=== PATIENT | female | born 1940 | race Caucasian/White ===

== ENCOUNTER 2017-05-17 15:51 | Emergency (ER) | payer MEDICARE, OTHER ==
[~2017-05-17 15:51] MED LIST: ACET500C PO; ALBUAER3 INH; APIDINJ SQ; ASPI81TA19 PO; ATOR10TA15 PO; BLAC540C2 PO; CALC1TAB30 PO; CARV12.52 PO; CHLO4TAB2 PO; DULC100C PO; FLUT50SP EACH NARE; GABA300C5 PO; GLUC15009 PO; LANTINJ SQ; LEVO-86 PO; LISI2.5T3 PO; OXYC-103 PO; OXYC-432 PO; PRED-503 PO; PREM0.452 PO; TIMO0.2517 EACH EYE; TRAM50TA PO; TRAV0.00 EACH EYE; TRAZ50TA12 PO
[2017-05-17] MEDS ORDERED: DEXTROSE 50% IN WATER 50 ML VIAL(D50) ONE (15:55)
[2017-05-17 16:06] VITALS: BP 151/83; PULSE 69; RESP 18; TEMP 97.4; O2SAT 99
--- NOTE | 2017-05-17 16:12 | PD ---
HPI Chief Complaint: Altered Mental Status Time Seen by Provider: 16:05 Travel History International Travel<30 days: No Contact w/Intl Traveler<30days: No Traveled to known affect area: No History of Present Illness HPI The patient is a 77-year-old female who presents emergency department for altered mental status. The patient apparently was noted to have altered mental status, diaphoresis, and confusion prior to arrival. The patient is a known diabetic, uses insulin on a daily basis. The patient and her cannot recall the names of the medications, however, she states she takes a long -acting insulin in the morning 26 units and a short acting insulin during the day. She states she takes 4 units in the morning of breakfast, and 12 units at lunch and dinner. The patient states she did eat lunch earlier today around noon, had breakfast food at lunch. States her blood sugar at that time was 59 and she administered the insulin. She denies taking any oral medicines for diabetes, however, cannot recall the names of all her medications. The patient denies any chest pain, shortness breath, nausea, vomiting, or abdominal pain. However, upon arrival the patient was a somewhat limited historian his Accu- Chek at bedside was 51. PFSH Past Medical History Arthritis: Yes Blood Disorders: No Cancer: No Cardiac Catheterization: Yes Cardiovascular Problems: Yes Chest Pain: No Diabetes: Yes Diminished Hearing: No Endocrine: Yes Gastrointestinal Disorders: No Glaucoma: No Genitourinary: No Hepatitis: No Hiatal Hernia: No (REPAIRED CHILD) Hypertension: Yes Immune Disorder: No Musculoskeletal: Yes (SCOLIOSIS) Neurologic: No Psychiatric: No Reproductive: No Respiratory: No Integumentary: No Seizures: Yes Thyroid Disease: Yes ?: Not Menopausal: Yes Past Surgical History Abdominal Surgery: Yes (HERNIA REPAIR 1950) Cholecystectomy: Yes (1984) Coronary Stent: Yes Joint Replacement: Yes (RIGHT KNEE 2008) Neurologic Surgery: Yes (LAMINECTOMY MICRODISCECTOMY 2003) Thoracic Surgery: No Other Surgery: Yes (HERNIA,GALLBLADDER,RIGHT KNEE,LAMINECTOMY,LEFT KNEE) Social History Alcohol Use: No Tobacco Use: No Substance Use: No Allergies-Medications (Allergen,Severity, Reaction): Coded Allergies: levofloxacin (Unverified Allergy, Severe, Hallucinations, 05/17/17) prasugrel (Unverified Allergy, Severe, Rash, 05/17/17) propoxyphene (Unverified Allergy, Mild, NAUSEA, 05/17/17) amitriptyline (Unverified Adverse Reaction, Intermediate, LEG PAIN, ) Reported Meds & Prescriptions Reported Meds & Active Scripts Active Reported Kenalog-10 Inj (Triamcinolone Acetonide) 50 Mg/5 Ml Inj 10 Mg ONCE Marcaine 0.75% Vial (Bupivacaine HCl/Pf) 7.5 Mg/Ml Vial MONTHLY Ranitidine (Ranitidine HCl) 300 Mg Tab 600 Mg PO DAILY Colace (Docusate Sodium) 100 Mg Capsule Allergy Relief (Chlorpheniramine Maleate) 4 Mg Tab 4 Mg PO Q4H PRN Mapap (Acetaminophen) 500 Mg Tab 500 Mg PO Q4-6H PRN Carvedilol 12.5 Mg Tab 12.5 Mg PO BID Calcium 600 with Vitamin D (Calcium Carbonate-Cholecalciferol) 600-400 mg-Unit Tab 1 Tab PO DAILY Humalog Inj (Insulin Human Lispro) 1,000 Unit/10 Ml Vial 2-12 Units SQ ACHS Max dose at bedtime:( )units; sugars < 70,(0)units; sugars 150-199,(2)units; sugars 200-249,(4)units; sugars 250-299,(7)units; sugars 300-349,(10)units; sugars more than 349,(12)units. Tresiba Flextouch Pen Inj (Insulin Degludec Inj) 300 unit/3 ML Pen 1 Units SQ TID Timolol Maleate (Timolol Maleate (Ophth)) 0.25 % Salima 1 Drop EACH EYE DAILY Dulcolax Stool Softener (Docusate Sodium) 100 Mg Cap 100 Mg PO EVERY OTHER DAY Oxycodone-Acetaminophen 5-325 mg Tab 1 Tab PO Q6H PRN Oxycontin (Oxycodone HCl) 10 Mg Tab 10 Mg PO Q12HR Trazodone (Trazodone HCl) 50 Mg Tab 50 Mg PO HS Tramadol (Tramadol HCl) 50 Mg Tab 1-2 Tab PO Q6H PRN Fluticasone Nasal [place] 50 Mcg/Act Naspr 100 Mcg EACH NARE DAILY PRN 50 mcg/spray Proair Hfa 8.5 GM Inh (Albuterol Sulfate) 90 Mcg/Act Aer 1 Puff INH DAILY PRN 108 mcg/actuation Apidra Inj (Insulin Glulisine Inj) 1,000 Unit/10 Ml Vial 6 Units SQ B4/LUNCH, DINNER Aspir-Low (Aspirin) 81 Mg Tabdr 2 Tab PO DAILY Atorvastatin (Atorvastatin Calcium) 10 Mg Tab 10 Mg PO HS Gabapentin 300 Mg Cap 300 Mg PO TID Glucosamine 1,500 Mg Tab 1,500 Mg PO DAILY Lantus Solostar Pen Inj (Insulin Glargine) 300 Unit/3 Ml Pen 27 Units SQ DAILYAC Lisinopril 2.5 Mg Tab 2.5 Mg PO DAILY Deltasone (Prednisone) 20 Mg Tab 10 Mg PO DAILY Prempro Blister Pack (Estrogens Conj/Medroxyprogest Acet) 0.45-1.5 Mg Tab 1 Tab PO EVERY OTHER DAY Synthroid (Levothyroxine Sodium) 137 Mcg Tab 137 Mcg PO DAILY Travatan Z Opth Drops (Travoprost) 0.004 % Soln 1 Drop EACH EYE HS Review of Systems ROS Limitations: Altered Mental Status Except as stated in HPI: all other systems reviewed are Neg General / Constitutional: No: Fever HENT: No: Lightheadedness Cardiovascular: Positive: Diaphoresis, No: Chest Pain or Discomfort Respiratory: No: Shortness of Breath Gastrointestinal: No: Nausea, Vomiting Musculoskeletal: Positive: Weakness Neurologic: Positive: Change in Mentation Physical Exam Narrative GENERAL: Awake, slightly confused 77 year-old female appears her stated age and is slightly diaphoretic. SKIN: Focused skin assessment: Diaphoretic. HEAD: Atraumatic. Normocephalic. EYES: Pupils equal and round. 3 mm bilateral and reactive. ENT: No nasal bleeding or discharge. Mucous membranes pink and moist. NECK: Trachea midline. No JVD. CARDIOVASCULAR: Regular rate and rhythm. No murmur appreciated. RESPIRATORY: No accessory muscle use. Clear to auscultation. Breath sounds equal bilaterally. GASTROINTESTINAL: Abdomen soft, non-tender, nondistended. No rebound tenderness. MUSCULOSKELETAL: No obvious deformities. No clubbing. No cyanosis. No edema. NEUROLOGICAL: Awake, slightly confused 77 year-old female appears her stated age. She is able follow simple commands. She is oriented to person, place, month, and year. Difficulty telling me the names of her medications. PSYCHIATRIC: Slightly confused. Data Data Last Documented VS Vital Signs Date Time Temp Pulse Resp B/P (MAP) Pulse Ox O2 Delivery O2 Flow Rate FiO2 05/17/17 16:06 97.4 69 18 151/83 (105) 99 Orders Orders Dextrose 50% In Miko (Vial) Inj (D50w (Vi (05/17/17 15:55) Electrocardiogram (05/17/17 16:05) Complete Blood Count With Diff (05/17/17 16:05) Comprehensive Metabolic Panel (05/17/17 16:05) Beta Hydroxybutyrate (Acetone) (05/17/17 16:05) Urinalysis - C+S If Indicated (05/17/17 16:05) Blood Glucose (05/17/17 16:05) Blood Glucose (05/17/17 17:05) Ecg Monitoring (05/17/17 16:05) Iv Access Insert/Monitor (05/17/17 16:05) Oximetry (05/17/17 16:05) NPO (05/17/17 16:05) Sodium Chloride 0.9% Flush (Ns Flush) (05/17/17 16:15) Labs Laboratory Tests Test 05/17/17 16:00 05/17/17 17:00 White Blood Count 9.6 TH/MM3 Red Blood Count 4.32 MIL/MM3 Hemoglobin 13.6 GM/DL Hematocrit 40.6 % Mean Corpuscular Volume 93.9 FL Mean Corpuscular Hemoglobin 31.5 PG Mean Corpuscular Hemoglobin Concent 33.5 % Red Cell Distribution Width 12.7 % Platelet Count 302 TH/MM3 Mean Platelet Volume 7.8 FL Neutrophils (%) (Auto) 78.8 % Lymphocytes (%) (Auto) 11.9 % Monocytes (%) (Auto) 6.5 % Eosinophils (%) (Auto) 1.3 % Basophils (%) (Auto) 1.5 % Neutrophils # (Auto) 7.7 TH/MM3 Lymphocytes # (Auto) 1.1 TH/MM3 Monocytes # (Auto) 0.6 TH/MM3 Eosinophils # (Auto) 0.1 TH/MM3 Basophils # (Auto) 0.1 TH/MM3 CBC Comment DIFF FINAL Differential Comment Blood Urea Nitrogen 33 MG/DL Creatinine 1.50 MG/DL Random Glucose 38 MG/DL Total Protein 7.5 GM/DL Albumin 3.6 GM/DL Calcium Level 9.5 MG/DL Alkaline Phosphatase 65 U/L Aspartate Amino Transf (AST/SGOT) 43 U/L Alanine Aminotransferase (ALT/SGPT) 37 U/L Total Bilirubin 0.4 MG/DL Sodium Level 139 MEQ/L Potassium Level 4.2 MEQ/L Chloride Level 104 MEQ/L Carbon Dioxide Level 28.6 MEQ/L Anion Gap 6 MEQ/L Estimat Glomerular Filtration Rate 34 ML/MIN B-Hydroxybutyrate 0.12 MMOL/L Urine Collection Type CLEAN CATCH Urine Color YELLOW Urine Turbidity CLEAR Urine pH 5.5 Urine Specific Christine 1.027 Urine Protein NEG mg/dL Urine Glucose (UA) 250 mg/dL Urine Ketones TRACE mg/dL Urine Occult Blood NEG Urine Nitrite NEG Urine Bilirubin NEG Urine Leukocyte Esterase SMALL Urine RBC 0-3 /hpf Urine WBC 6-8 /hpf Urine Squamous Epithelial Cells 6-8 /hpf Urine Amorphous Sediment FEW Microscopic Urinalysis Comment CULT NOT INDICATED MDM Medical Decision Making Medical Screen Exam Complete: Yes Emergency Medical Condition: Yes Medical Record Reviewed: Yes Interpretation(s) EKG reveals normal sinus rhythm with a rate of 66. Left bundle branch block. Laboratory Tests Test 05/17/17 16:00 05/17/17 17:00 White Blood Count 9.6 TH/MM3 Red Blood Count 4.32 MIL/MM3 Hemoglobin 13.6 GM/DL Hematocrit 40.6 % Mean Corpuscular Volume 93.9 FL Mean Corpuscular Hemoglobin 31.5 PG Mean Corpuscular Hemoglobin Concent 33.5 % Red Cell Distribution Width 12.7 % Platelet Count 302 TH/MM3 Mean Platelet Volume 7.8 FL Neutrophils (%) (Auto) 78.8 % Lymphocytes (%) (Auto) 11.9 % Monocytes (%) (Auto) 6.5 % Eosinophils (%) (Auto) 1.3 % Basophils (%) (Auto) 1.5 % Neutrophils # (Auto) 7.7 TH/MM3 Lymphocytes # (Auto) 1.1 TH/MM3 Monocytes # (Auto) 0.6 TH/MM3 Eosinophils # (Auto) 0.1 TH/MM3 Basophils # (Auto) 0.1 TH/MM3 CBC Comment DIFF FINAL Differential Comment Blood Urea Nitrogen 33 MG/DL Creatinine 1.50 MG/DL Random Glucose 38 MG/DL Total Protein 7.5 GM/DL Albumin 3.6 GM/DL Calcium Level 9.5 MG/DL Alkaline Phosphatase 65 U/L Aspartate Amino Transf (AST/SGOT) 43 U/L Alanine Aminotransferase (ALT/SGPT) 37 U/L Total Bilirubin 0.4 MG/DL Sodium Level 139 MEQ/L Potassium Level 4.2 MEQ/L Chloride Level 104 MEQ/L Carbon Dioxide Level 28.6 MEQ/L Anion Gap 6 MEQ/L Estimat Glomerular Filtration Rate 34 ML/MIN B-Hydroxybutyrate 0.12 MMOL/L Urine Collection Type CLEAN CATCH Urine Color YELLOW Urine Turbidity CLEAR Urine pH 5.5 Urine Specific Christine 1.027 Urine Protein NEG mg/dL Urine Glucose (UA) 250 mg/dL Urine Ketones TRACE mg/dL Urine Occult Blood NEG Urine Nitrite NEG Urine Bilirubin NEG Urine Leukocyte Esterase SMALL Urine RBC 0-3 /hpf Urine WBC 6-8 /hpf Urine Squamous Epithelial Cells 6-8 /hpf Urine Amorphous Sediment FEW Microscopic Urinalysis Comment CULT NOT INDICATED Differential Diagnosis Differential diagnosis includes hypoglycemia, CVA, TIA, UTI, hyponatremia, medication side effect. Narrative Course IV was established, labs are drawn and sent, and the patient was placed on cardiac telemetry monitoring and continuous pulse oximetry monitoring. EKG was ordered and interpreted. The patient was immediately administered 1 amp of D50. I had a discussion with the patient's bedside, he did not know the names of the medications that she left wall of alcohol. Therefore, the was traveling home to obtain the wallet for medications. I reviewed the EMR, does appear she is on insulin, I did not see any sulfonylureas on her medication list. The patient was given a tray a bedside EEG and her blood sugars were checked every hour 2. The patient's creatinine was noted to be 1.5 , initial CMP revealed a glucose of 38. The patient was reevaluated at 5 PM ( 159), after she was administered an amp of D50 and ate a meal, she was now awake and alert 5 and able to follow commands without difficulty. Her symptoms had resolved. The patient continued to be monitored in the emergency department and repeat Accu-Chek at 6 PM was ordered. The patient's UA had 6-8 WBCs and squamous epithelial cells, most likely contaminant. Culture was not indicated. The patient's blood glucose at 6 PM was 199. The patient is alert and oriented 5, nonfocal on exam, she is stable for outpatient follow-up. Diagnosis Primary Impression: Hypoglycemia Additional Impression: Altered mental status Qualified Codes: R41.0 - Disorientation, unspecified Patient Instructions: General Instructions Additional Instructions: Please provide a patient a copy of her labs at discharge. Follow-up with her primary physician. Monitor blood sugars closely. Return if symptoms worsen or progress. Disposition: 01 DISCHARGE HOME Condition: Stable Tawanda Og MD May 17, 2017 16:12
[2017-05-17] MEDS ORDERED: SODIUM CHLORIDE 0.9% FLUSH 10 ML FLUSH IVF PRN (16:15)
[2017-05-17] MEDS ORDERED: INSU1INJ14 SQ (16:18)
[2017-05-17] MEDS ORDERED: HUMALOG SQ (16:18)
[2017-05-17 16:27] LABS: AUTOMATED NEUTROPHIL # 7.7 TH/MM3 (1.8-7.7); BASOPHIL # 0.1 TH/MM3 (0-0.2); BASOPHIL % 1.5 % (0.0-2.0); EOSINOPHIL # 0.1 TH/MM3 (0-0.4); EOSINOPHIL % 1.3 % (0.0-4.0); HEMATOCRIT 40.6 % (35.0-46.0); HEMO FLAGS DIFF FINAL; LYMPH % 11.9 % (9.0-44.0); LYMPHOCYTE # 1.1 TH/MM3 (1.0-4.8); MEAN CELL VOLUME 93.9 FL (80.0-100.0); MEAN CORPUSCULAR HEMOGLOBIN 31.5 PG (27.0-34.0); MEAN CORPUSCULAR HGB CONC 33.5 % (32.0-36.0); MONO % 6.5 % (0.0-8.0); NEUT % 78.8 % (16.0-70.0); PLATELET COUNT 302 TH/MM3 (150-450); RED BLOOD COUNT 4.32 MIL/MM3 (4.00-5.30); RED CELL DISTRIBUTION WIDTH 12.7 % (11.6-17.2); WHITE BLOOD COUNT 9.6 TH/MM3 (4.0-11.0)
[2017-05-17] MEDS ORDERED: ALLE4TAB28 PO (16:42)
[2017-05-17] MEDS ORDERED: MAPA500T PO (16:42)
[2017-05-17] MEDS ORDERED: CALC1TAB87 PO (16:42)
[2017-05-17] MEDS ORDERED: CARV12.52 PO (16:42)
[2017-05-17] MEDS ORDERED: COLA100C5 (16:42)
[2017-05-17] MEDS ORDERED: TRIA50P (16:42)
[2017-05-17] MEDS ORDERED: RANI300T PO (16:42)
[2017-05-17] MEDS ORDERED: [UNRECOGNIZED DRUG - CODE] (16:42)
[2017-05-17 16:54] LABS: CHLORIDE 104 MEQ/L (98-107); POTASSIUM 4.2 MEQ/L (3.5-5.1); SODIUM (NA) 139 MEQ/L (136-145)
[2017-05-17 16:58] LABS: ANION GAP 6 MEQ/L (5-15); BICARBONATE 28.6 MEQ/L (21.0-32.0)
[2017-05-17 17:05] LABS: ALKALINE PHOSPHATASE 65 U/L (45-117); ALT (GPT) 37 U/L (10-53); AST (GOT) 43 U/L (15-37); BLOOD UREA NITROGEN 33 MG/DL (7-18); GLOMERULAR FILTRATION RATE 34 ML/MIN (>89); TOTAL BILIRUBIN ADULT 0.4 MG/DL (0.2-1.0)
[2017-05-17 17:17] LABS: BETA-HYDROXYBUTYRATE 0.12 MMOL/L (0.00-0.39)
[2017-05-17 17:21] LABS: BLOOD, URINE NEG (NEG); GLUCOSE,URINE 250 mg/dL (NEG); KETONE, URINE TRACE mg/dL (NEG); NITRITE,URINE NEG (NEG); PH, URINE 5.5 (5.0-8.5)
[2017-05-17 17:27] LABS: METHOD OF COLLECTION CLEAN CATCH; URINE COLOR YELLOW (YELLW/STRAW)
[2017-05-17 17:28] LABS: COMMENT (UR) CULT NOT INDICATED; CULTURE IF INDICATED CULT NOT INDICATED; RBC, URINE 0-3 /hpf (0-3)
[2017-05-17 18:01] VITALS: BP 120/57; TEMP 97.9
--- NOTE | 2017-05-18 16:18 | EKG ---
Date Performed: 05/17/2017 Time Performed: 16:37:54 PTAGE: 77 years EKG: Sinus rhythm POSSIBLE LEFT ATRIAL ENLARGEMENT LEFT BUNDLE BRANCH BLOCK Compared to prior tracing no significant c hange ABNORMAL ECG PREVIOUS TRACING : 01/15/2016 08.09 DOCTOR: aLrs Carrero Interpretating Date/Time 05/18/2017 16:16:17
== END 2017-05-17 18:16 | disposition home or self-care (01) ==
LOC: PHED 15:51
DX: E11.649 Type 2 diabetes mellitus with hypoglycemia without coma (principal); Z79.4 Long term (current) use of insulin
CPT/HCPCS: 80053; 81001; 82010; 85025; 93005; 96374

== ENCOUNTER 2018-06-26 15:28 | Inpatient (IN) ==
[2018-06-26] MEDS ORDERED: Vancomycin Inj 1,000 MG in Sodium Chlor 0.9% Inj 250 ML IV.SIG ONE (16:07)
--- NOTE | 2018-06-26 16:15 | ED ---
HPI General Chief complaint: Skin/Abscess/Foreign Body Stated complaint: Cellultis Lft Leg Time Seen by Provider: 06/26/18 15:47 Source: patient Mode of arrival: ambulatory Limitations: no limitations History of Present Illness HPI narrative: Patient is a 78-year-old female who returns to the emergency room for evaluation of worsening cellulitis. Patient reports that she was seen in the emergency room on June 23, 2018, reports that she had an ultrasound of her left lower extremity to rule out DVT and was diagnosed with a cellulitis to her left lower extremity. Patient reports that prior to coming to the emergency room for this, she suffered an abrasion to her anterior aspect of her distal tib-fib. Patient reports that her airbrush painter, Dr. Morley prescribed her a cream to put on this. Patient reports that she began to have pus from this abrasion site and redness to her foot. Patient reports that the cellulitis has progressed past her foot and upper leg to the distal one third aspect of her left tib-fib. Patient reports that she has been taking her antibiotics as prescribed but it has not been helping her. Patient reports concerns that she is a diabetic, her blood sugars have been controlled. Patient denies any fevers or chills, no other complaints. Related Data Home Medications Medication Instructions Recorded Confirmed acetaminophen [Acetaminophen Extra 500 mg PO HS 06/23/18 06/26/18 Strength] albuterol sulfate [ProAir HFA] 1 puff INHALATION Q6H PRN 06/23/18 06/26/18 aspirin 325 mg PO DAILY 06/23/18 06/26/18 atorvastatin 10 mg PO DAILY 06/23/18 06/26/18 azelaic acid [Finacea] 1 applic TOPICAL DAILY 06/23/18 06/26/18 calcium carbonate-vitamin D3 2 tab PO DAILY 06/23/18 06/26/18 [Calcium 600 + D(3)] carvedilol 25 mg PO DAILY 06/23/18 06/26/18 conj estrog-medroxyprogest estrada 1 tab PO EVERY OTHER DAY 06/23/18 06/26/18 [Prempro] docusate sodium [Colace] 100 mg PO DAILY 06/23/18 06/26/18 fentanyl 1 patch TRANSDERMAL Q72H 06/23/18 06/26/18 gabapentin 300 mg PO QID 06/23/18 06/26/18 glucosamine sulfate 1,000 mg PO DAILY 06/23/18 06/26/18 hydrocodone-acetaminophen [[place]] 1 tab PO Q6H PRN 06/23/18 06/26/18 insulin NPH and regular human 14 unit SUBCUT BID 06/23/18 06/26/18 [Novolin 70-30 FlexPen U-100] insulin degludec [Tresiba 24 unit SUBCUT DAILY 06/23/18 06/26/18 FlexTouch U-100] latanoprost 1 drp OPHTHALMIC (EYE) QPM 06/23/18 06/26/18 levothyroxine [Synthroid] 137 mcg PO DAILY 06/23/18 06/26/18 lisinopril 2.5 mg PO DAILY 06/23/18 06/26/18 oxycodone [OxyContin] 20 mg PO DAILY 06/23/18 06/26/18 prednisone 10 mg PO DAILY 06/23/18 06/26/18 ranitidine HCl 300 mg PO BID 06/23/18 06/26/18 tramadol 50 mg PO Q6H PRN 06/23/18 06/26/18 travoprost [Travatan Z] 1 drp OPHTHALMIC (EYE) QPM 06/23/18 06/26/18 trazodone 25 mg PO HS 06/23/18 06/26/18 Previous Rx's Medication Instructions Recorded ciprofloxacin HCl [Cipro] 500 mg PO BID 7 Days #14 tab 06/23/18 sulfamethoxazole-trimethoprim 1 tab PO BID 7 Days #14 tab 06/23/18 [Bactrim DS] Allergies Allergy/AdvReac Type Severity Reaction Status Date / Time levofloxacin Allergy Severe Hallucinati Verified 06/26/18 15:36 ons prasugrel Allergy Severe Rash Verified 06/26/18 15:36 propoxyphene Allergy Mild NAUSEA Verified 06/26/18 15:36 amitriptyline AdvReac Intermediate LEG PAIN Verified 06/26/18 15:36 Review of Systems ROS: all other systems reviewed are negative [facility] Medical History Medical History Diabetes 1.5, managed as type 2 (Acute) Hernia (Acute) Surgical History Surgical History H/O heart artery stent (Acute) H/O laminectomy (Acute) History of total right knee replacement (Acute) Hx of arthroscopy of left knee (Acute) Hx of cholecystectomy (Acute) Hx of microdiscectomy (Acute) Social History Social History Substance History: No History of Abuse Second Hand Smoke Exposure: No Smoking Status: Former smoker Tobacco Type: Cigarettes How Often Do You Have a Drink Containing Alcohol: Never Recent Travel in [facility] within the Last 8 Weeks: No Recent Out of Country Travel within the Last 8 Weeks: No Immunization History Tetanus Immunization: <5 Years Exam Narrative Exam Narrative: GENERAL: NAD SKIN: Focused skin assessment warm/dry. HEAD: Atraumatic. Normocephalic. EYES: Pupils equal and round. No scleral icterus. No injection or drainage. ENT: No nasal bleeding or discharge. Mucous membranes pink and moist. NECK: Trachea midline. No JVD. CARDIOVASCULAR: Regular rate and rhythm. No murmur appreciated. RESPIRATORY: No accessory muscle use. Clear to auscultation. Breath sounds equal bilaterally. GASTROINTESTINAL: Abdomen soft, non-tender, nondistended. Hepatic and splenic margins not palpable. MUSCULOSKELETAL: No obvious deformities. No clubbing. No cyanosis. Patient with +3 pitting edema to right lower extremity (from foot to ankle), she has an abrasion or ulceration to the distal left anterior tib-fib with no active drainage noted. Patient does have a palpable dorsalis pedal pulse. NEUROLOGICAL: Awake and alert. No obvious cranial nerve deficits. Motor grossly within normal limits. Normal speech. PSYCHIATRIC: Appropriate mood and affect; insight and judgment normal. Course Initial Documented Vital Signs Temperature 98.0 F 06/26/18 15:31 Pulse Rate 79 06/26/18 15:31 Respiratory Rate 18 06/26/18 15:31 Blood Pressure 121/64 06/26/18 15:31 Pulse Oximetry 96 06/26/18 15:31 Last Documented Vital Signs Temperature 98.0 F 06/26/18 15:31 Pulse Rate 79 06/26/18 15:31 Respiratory Rate 18 06/26/18 15:31 Blood Pressure 121/64 06/26/18 15:31 Pulse Oximetry 96 06/26/18 15:31 Medical Decision Making MDM Narrative Medical decision making narrative: During the course of the patients emergency department visit, the patients history, examination, and differential diagnosis were reviewed with the patient. The patient was placed on a personnel monitor with oximetry and frequent blood pressure monitoring. The patient had an IV access obtained and blood work sent for analysis. The patient was initially provided IV vancomycin Previous records were reviewed. Patient was discharged to home with a prescription for Bactrim and Cipro, she has failed outpatient treatment. Plan for patient to be admitted to the hospital as patients symptoms have progressed and worsened. The patients laboratory studies were reviewed and remarkable for WBC 10.4, hemoglobin 12.6, hematocrit 37.7, platelets 263 Sodium 136, potassium 4.9, chloride 102, BUN 28, creatinine 1.70, glucose 210 Patient did have an US of LLE on 06/23 which was negative for dvt Patient with failed outpatient treatment for left foot cellulitis, she will require admission, call made to the admitting team case reviewed with Dr. Marrufo who accepts pt to service Medical Screen Exam Complete: Yes Emergency Medical Condition: Yes Differential Diagnosis Differential Diagnosis: Cellulitis, venous insufficiency, abscess, osteomyelitis Medical Records Medical records reviewed: Yes I reviewed the patient's medical records. Lab Data Lab results reviewed: Yes I reviewed the patient's lab results. Result diagrams: 06/26/18 16:15 06/26/18 16:15 Lab Results 06/26/18 06/26/18 Range/Units 16:15 16:15 CBC w Diff Auto diff final WBC 10.4 (4.0-11.0) th/mm3 RBC 4.13 (4.00-5.30) mil/mm3 Hgb 12.6 (11.6-15.3) gm/dL Hct 37.7 (35.0-46.0) % MCV 91.2 (80.0-100.0) fL MCH 30.5 (27.0-34.0) pg MCHC 33.4 (32.0-36.0) % RDW 12.1 (11.6-17.2) % Plt Count 263 (150-450) th/mm3 MPV 7.7 (7.0-11.0) fL Neut % (Auto) 92.4 H (16.0-70.0) % Lymph % (Auto) 6.2 L (9.0-44.0) % [place] % (Auto) 0.9 (0.0-8.0) % Eos % (Auto) 0.2 (0.0-4.0) % Baso % (Auto) 0.3 (0.0-2.0) % Neut # (Auto) 9.7 H (1.8-7.7) th/mm3 Lymph # (Auto) 0.6 L (1.0-4.8) th/mm3 [place] # (Auto) 0.1 (0.0-0.9) th/mm3 Eos # (Auto) 0.0 (0.0-0.4) th/mm3 Baso # (Auto) 0.0 (0.0-0.2) th/mm3 WBC Differential . Differential Comment . Sodium 136 (136-145) meq/L Potassium 4.9 (3.5-5.1) meq/L Chloride 102 (98-107) meq/L Carbon Dioxide 25.8 (21.0-32.0) meq/L Anion Gap 8 (5-15) meq/L BUN 28 H (7-18) mg/dL Creatinine 1.70 H (0.50-1.00) mg/dL Estimated GFR 29 L (>89) mL/min Random Glucose 210 H (74-106) mg/dL Calcium 8.5 (8.5-10.1) mg/dL Imaging Data Attestation: I personally reviewed and interpreted this imaging study as follows : Radiologist's impression: Foot X-Ray 06/26/18 16:07 CONCLUSION: Soft tissue swelling of the left foot. Question hairline fracture proximal phalanx third toe. Discharge Plan Discharge Disposition Patient Disposition: ED Admit(ED Internal Use Only) Discharge Condition Condition: Stable Discharge Order Discharge Orders: ED Use Only Admit Order (Routine); Ordered 06/26/18 Ordered By: Ruba Prater Discharge Details Diagnosis: Cellulitis of left lower leg Physicians Team ED Provider: Ruba Prater Primary Care Provider: Padmini Kam Rxs /Orders / Referrals /Forms Prescriptions: No Action latanoprost 0.005 % Drops 1 drp OPHTHALMIC (EYE) QPM RF: 0 levothyroxine [Synthroid] 137 mcg Tablet 137 mcg PO DAILY RF: 0 prednisone 10 mg Tablet 10 mg PO DAILY RF: 0 carvedilol 12.5 mg Tablet 25 mg PO DAILY RF: 0 trazodone 50 mg Tablet 25 mg PO HS RF: 0 atorvastatin 10 mg Tablet 10 mg PO DAILY RF: 0 aspirin 325 mg Tablet 325 mg PO DAILY RF: 0 travoprost [Travatan Z] 0.004 % Drops 1 drp OPHTHALMIC (EYE) QPM RF: 0 calcium carbonate-vitamin D3 [Calcium 600 + D(3)] 600 mg(1,500mg) -200 unit Tablet 2 tab PO DAILY RF: 0 hydrocodone-acetaminophen [[place]] 10-325 mg Tablet 1 tab PO Q6H PRN (Reason: Pain) RF: 0 tramadol 50 mg Tablet 50 mg PO Q6H PRN (Reason: Pain) RF: 0 acetaminophen [Acetaminophen Extra Strength] 500 mg Tablet 500 mg PO HS RF: 0 ranitidine HCl 300 mg Capsule 300 mg PO BID RF: 0 docusate sodium [Colace] 100 mg Capsule 100 mg PO DAILY RF: 0 gabapentin 300 mg Capsule 300 mg PO QID RF: 0 fentanyl 25 mcg/hr Patch 72 Hour 1 patch TRANSDERMAL Q72H RF: 0 albuterol sulfate [ProAir HFA] 90 mcg/actuation Hfa Aerosol Inhaler 1 puff INHALATION Q6H PRN (Reason: Wheezing) RF: 0 lisinopril 2.5 mg Tablet 2.5 mg PO DAILY RF: 0 glucosamine sulfate 1,000 mg Capsule 1,000 mg PO DAILY RF: 0 azelaic acid [Finacea] 15 % Gel 1 applic TOPICAL DAILY RF: 0 conj estrog-medroxyprogest estrada [Prempro] 0.45-1.5 mg Tablet 1 tab PO EVERY OTHER DAY RF: 0 insulin NPH and regular human [Novolin 70-30 FlexPen U-100] 100 unit/mL (70-30 ) Insulin Pen 14 unit SUBCUT BID RF: 0 insulin degludec [Tresiba FlexTouch U-100] 100 unit/mL (3 mL) Insulin Pen 24 unit SUBCUT DAILY RF: 0 oxycodone [OxyContin] 10 mg Tablet,Oral Only,Ext.Rel.12 Hr 20 mg PO DAILY RF: 0 ciprofloxacin HCl [Cipro] 500 mg tablet 500 mg PO BID 7 Days Qty: 14 RF: 0 sulfamethoxazole-trimethoprim [Bactrim DS] 800-160 mg tablet 1 tab PO BID 7 Days Qty: 14 RF: 0 Status ED Status: With Doctor
[2018-06-26 16:27] LABS: Baso % (Auto) 0.3 % (0.0-2.0); Eos % (Auto) 0.2 % (0.0-4.0); Hematocrit 37.7 % (35.0-46.0); Hemoglobin 12.6 gm/dL (11.6-15.3); Lymph # (Auto) 0.6 th/mm3 (1.0-4.8); Lymph % (Auto) 6.2 % (9.0-44.0); Mean Corpuscular HGB Conc 33.4 % (32.0-36.0); Mean Corpuscular Hemoglobin 30.5 pg (27.0-34.0); Mean Corpuscular Volume 91.2 fL (80.0-100.0); Mean Platelet Volume 7.7 fL (7.0-11.0); Mono # (Auto) 0.1 th/mm3 (0.0-0.9); Mono % (Auto) 0.9 % (0.0-8.0); Neut # (Auto) 9.7 th/mm3 (1.8-7.7); Neut % (Auto) 92.4 % (16.0-70.0); Platelet Count 263 th/mm3 (150-450); Red Blood Count 4.13 mil/mm3 (4.00-5.30); Red Cell Distribution Width 12.1 % (11.6-17.2); White Blood Count 10.4 th/mm3 (4.0-11.0)
[2018-06-26 16:39] LABS: Potassium 4.9 meq/L (3.5-5.1)
[2018-06-26 16:42] LABS: Calcium 8.5 mg/dL (8.5-10.1); Carbon Dioxide 25.8 meq/L (21.0-32.0)
--- NOTE | 2018-06-26 16:57 | XR ---
EXAM DATE: 06/26/2018 4:34 PM EST AGE/SEX: 78 years / Female INDICATIONS: Aseptic necrosis, CLINICAL DATA: This is the patient's initial encounter. Patient reports that signs and symptoms have been present for 1 week and indicates a pain score of 7/10. MEDICAL/SURGICAL HISTORY: . Diabetes. . Hernia. Coronary artery stent. Cholecystectomy. Total knee replacement, right. Laminectomy. Microdiscectomy. COMPARISON: No prior exams available for comparison. FINDINGS: There is soft tissue swelling of the left foot, especially the forefoot. Questionable hairline fractu re proximal phalanx third toe. No bony destructive changes. 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 CONCLUSION: Soft tissue swelling of the left foot. Question hairline fracture proximal phalanx third toe. Electronically signed by: Quan Alarcon MD Board Certified Radiologist 06/26/2018 4:56 PM EST
[2018-06-26] MEDS ORDERED: Vancomycin Consult Pharmacy OTHER PRN (17:13)
[2018-06-26] MEDS ORDERED: Dextrose 50% in Water 50 ML Vial IV.PUSH PRN (17:20)
[2018-06-26] MEDS ORDERED: Bisacodyl 10 MG Supp RECTAL PRN (17:21)
[2018-06-26] MEDS ORDERED: Acetaminophen 325 MG Tablet PO PRN (17:21)
[2018-06-26] MEDS ORDERED: Gabapentin 300 MG Capsule PO SCH ×2 (18:00→21:00)
[2018-06-26] MEDS ORDERED: TRAVOPROST EACH EYE SCH (18:00)
--- NOTE | 2018-06-26 19:39 | P.HPIM ---
History of Present Illness Primary Care Physician: Padmini Kam MD History of Present Illness: 78-year-old female with a history of diabetes mellitus, diabetic peripheral neuropathy, recent left peroneal nerve block just above the left anterior ankle on 06/08 who presents with a one-week history of progressively worsening left foot tenderness, redness, swelling. She visited the ER on 06/24, had a Doppler done which was negative for DVT, and was discharged on Bactrim, ciprofloxacin which she has been taking. Redness has continued to worsen since this time. Patient otherwise says she feels all right. Denies any chest pain, shortness of breath, nausea, vomiting, fevers, chills, headedness, dizziness. Inpatient Certification: I certify that the inpatient services were ordered in accordance with Medicare regulations governing the order. This includes certification that hospital inpatient services are reasonable and necessary and in the case of services not specified as inpatient-only under 42 CFR 419.22(n), that they are appropriately provided as inpatient services in accordance to with the 2-midnight benchmark under 43 CFR 412.3(e) Estimated Total Length of Stay (Days): 2 Plans for Post Hospital Care: Not yet determined Review of Systems All other systems reviewed negative except as stated in [facility] - History History Provided By: Patient - Medical History Medical History: Medical History (Last Reviewed 06/26/18 @ 16:12 by Ruba Prater) Diabetes 1.5, managed as type 2 Hernia - Surgical History Surgical History: Surgical History (Last Reviewed 06/26/18 @ 19:28 by Oneal Marrufo MD) H/O heart artery stent H/O laminectomy History of total right knee replacement Hx of arthroscopy of left knee Hx of cholecystectomy Hx of microdiscectomy - Family History Family History: Family History (Last Updated 06/26/18 @ 19:29 by Oneal Marrufo MD) Other Family history non-contributory - Tobacco History Second Hand Smoke Exposure: No Tobacco Use In Past 30 Days: No Smoking Status: Former smoker Tobacco Type: Cigarettes - Alcohol History How Often Do You Have a Drink Containing Alcohol: Never - Substance Use History Substance History: No History of Abuse - Travel History Recent Travel in the [place] Within the Last 8 Weeks: No Recent Travel Out of the Country Within the Last 8 Weeks: No - Immunization History Tetanus Immunization: <5 Years Medications and Allergies Active Medications: Active Medications Acetaminophen (Tylenol) 500 mg PO HS [facility] Acetaminophen (Tylenol) 650 mg PO Q4H PRN PRN Reason: Temp > 100.4 Hydrocodone Bitart/Acetaminophen ([place] 10/325) 1 tab PO Q6H PRN PRN Reason: Pain 1-10 Al Hydroxide/Mg Hydroxide (Milk Of Magnesia Liq) 30 ml PO Q12H PRN PRN Reason: Mild Constipation Albuterol (Ventolin Hfa Inh) 1 puff INH Q6H PRN PRN Reason: SOB/WHEEZING Aspirin (Aspirin) 325 mg PO DAILY [facility] Atorvastatin Calcium (Lipitor) 10 mg PO DAILY [facility] Bisacodyl (Dulcolax Supp) 10 mg RECTAL DAILY PRN PRN Reason: SEVERE CONSITIPATION Carvedilol (Coreg) 12.5 mg PO BID [facility] Dextrose (D50w Vial) 50 ml IV.PUSH UNSCH PRN PRN Reason: PER HYPOGLYCEMIA PROTOCOL Docusate Sodium (Colace) 100 mg PO DAILY [facility] Fentanyl (Duragesic 25 Mcg Patch.72hr) 1 patch T-DERMAL Q72H [facility] Last Admin: 06/26/18 17:42 Dose: Not Given Gabapentin (Neurontin) 300 mg PO HS [facility] Gabapentin (Neurontin) 300 mg PO TID@0300,0900,1500 [facility] Glucagon (Glucagon Inj) 1 mg OTHER PRN PRN PRN Reason: for Hypoglycemia Protocol Heparin Sodium (Porcine) (Heparin Inj) 5,000 units SQ Q12H [facility] Piperacillin/Tazobactam/Dextrose (Zosyn 4.5 Gm Premix) 4.5 gm in 100 mls @ 200 mls/hr IV.SIG Q6H [facility] Insulin Aspart (Novolog Insulin Correctional Sugar Inj) 0 unit SQ ACHS [facility]; Protocol Lactulose (Lactulose Liq) 30 ml PO DAILY PRN PRN Reason: SEVERE CONSITIPATION Latanoprost (Xalatan 0.005% Opth Drops) 1 drop EACH EYE QPM [facility] Lisinopril (Prinivil) 2.5 mg PO DAILY [facility] Non-Formulary Medication (Calcium Carbonate-Vitamin D3 [Calcium 600 + D(3)]) 2 tab PO DAILY [facility] Non-Formulary Medication (Insulin Degludec [Tresiba Flextouch U-100]) 24 unit SQ DAILY [facility] Non-Formulary Medication (Levothyroxine [Synthroid]) 137 mcg PO DAILY [facility] Non-Formulary Medication (Travoprost [Travatan Z]) 1 drp EACH EYE QPM [facility] Last Admin: 06/26/18 17:44 Dose: Not Given Ondansetron HCl (Zofran Inj) 4 mg IV.PUSH Q6H PRN PRN Reason: NAUSEA OR VOMITING Pharmacy Profile Note (Vancomycin Consult Pharmacy) 1 each OTHER UNSCH PRN PRN Reason: Pharmacy to dose Prednisone (Deltasone) 10 mg PO DAILY [facility] Sennosides (Senokot) 17.2 mg PO Q12H PRN PRN Reason: Moderate Constipation Sodium Chloride (Ns Flush) 2 ml IV.FLUSH BID [facility] Sodium Chloride (Ns Flush) 2 ml IV.FLUSH PRN PRN PRN Reason: FLUSH AFTER USING IV ACCESS Trazodone HCl (Desyrel) 25 mg PO HS [facility] Allergies Allergy/AdvReac Type Severity Reaction Status Date / Time levofloxacin Allergy Severe Hallucinati Verified 06/26/18 15:36 ons prasugrel Allergy Severe Rash Verified 06/26/18 15:36 propoxyphene Allergy Mild NAUSEA Verified 06/26/18 15:36 amitriptyline AdvReac Intermediate LEG PAIN Verified 06/26/18 15:36 Home Medications Medication Instructions Recorded Confirmed Type acetaminophen [Acetaminophen Extra 500 mg PO HS PRN 06/23/18 06/26/18 History Strength] albuterol sulfate [ProAir HFA] 1 puff INHALATION Q6H PRN 06/23/18 06/26/18 History atorvastatin 10 mg PO HS 06/23/18 06/26/18 History azelaic acid [Finacea] 1 applic TOPICAL DAILY 06/23/18 06/26/18 History calcium carbonate-vitamin D3 2 tab PO DAILY 06/23/18 06/26/18 History [Calcium 600 + D(3)] carvedilol 25 mg PO BID 06/23/18 06/26/18 History conj estrog-medroxyprogest estrada 1 tab PO EVERY OTHER DAY 06/23/18 06/26/18 History [Prempro] docusate sodium [Colace] 100 mg PO DAILY 06/23/18 06/26/18 History fentanyl 1 patch TRANSDERMAL Q72H 06/23/18 06/26/18 History gabapentin 300 mg PO QID 06/23/18 06/26/18 History glucosamine sulfate 1,200 mg PO DAILY 06/23/18 06/26/18 History hydrocodone-acetaminophen [[place]] 1 tab PO Q6H PRN 06/23/18 06/26/18 History insulin NPH and regular human 6 unit SUBCUT DAILY 06/23/18 06/26/18 History [Novolin 70-30 FlexPen U-100] insulin degludec [Tresiba 18 unit SUBCUT DAILY 06/23/18 06/26/18 History FlexTouch U-100] latanoprost 1 drp OPHTHALMIC (EYE) QPM 06/23/18 06/26/18 History levothyroxine [Synthroid] 137 mcg PO DAILY 06/23/18 06/26/18 History lisinopril 2.5 mg PO HS 06/23/18 06/26/18 History oxycodone [OxyContin] 20 mg PO DAILY 06/23/18 06/26/18 History prednisone 10 mg PO DAILY 06/23/18 06/26/18 History ranitidine HCl 300 mg PO BID 06/23/18 06/26/18 History tramadol 50 mg PO Q6H PRN 06/23/18 06/26/18 History trazodone 25 mg PO HS 06/23/18 06/26/18 History Novolog Flexpen U-100 Insulin 8 units SUBCUT DAILY 06/26/18 06/26/18 History insulin asp prt-insulin aspart 8 unit SUBCUT AC 06/26/18 06/26/18 History [Novolog Mix 70-30 U-100 Insuln] Exam Vital signs: Vital Signs 06/26/18 15:31 06/26/18 18:38 Temperature 98.0 F 96.5 F L Pulse Rate 79 77 Respiratory Rate 18 20 Blood Pressure 121/64 147/65 H Pulse Oximetry 96 96 Intake & Output 06/26/18 06/26/18 06/27/18 06:59 18:59 06:59 Intake Total 250 / 250 Balance 250 / 250 Weight 78.925 kg Intake: IV 250 / 250 Vancomycin Inj 1,000 MG In NS 250 / 250 Inj 250 ML @ 250 mls/hr IV.SIG ONCE ONE Rx#:[id number] Other: Weight On Admission 78.925 kg Narrative: GENERAL: Patient lying in bed. Appears comfortable. Alert and oriented x4. SKIN: Warm and dry. HEAD: Atraumatic. Normocephalic. EYES: Pupils equal and round. No scleral icterus. No injection or drainage. ENT: No nasal bleeding or discharge. Mucous membranes pink and moist. NECK: Trachea midline. No JVD. CARDIOVASCULAR: Regular rate and rhythm. RESPIRATORY: No accessory muscle use. Clear to auscultation. Breath sounds equal bilaterally. GASTROINTESTINAL: Abdomen soft, non-tender, nondistended. Hepatic and splenic margins not palpable. MUSCULOSKELETAL: Extremities without clubbing, cyanosis. Patient with +2 edema in the left foot. There is a small 1 x 1 cm scab over the left anterior ankle with market erythema and swelling of the entire foot distally. No other broken skin on the foot. Patient also has a left anterior del castillo dressing, with underlying wound dressed with no obvious deformities. Patient says this is been there for a very long time and she receives wound care for this.. NEUROLOGICAL: Awake and alert. No obvious cranial nerve deficits. Motor grossly within normal limits. Five out of 5 muscle strength in the arms and legs. Normal speech. PSYCHIATRIC: Appropriate mood and affect; insight and judgment normal. Results - Labs CBC & Chem 7: 06/26/18 16:15 06/26/18 16:15 Labs: Short CBC 06/26/18 Range/Units 16:15 WBC 10.4 (4.0-11.0) th/mm3 Hgb 12.6 (11.6-15.3) gm/dL Hct 37.7 (35.0-46.0) % Plt Count 263 (150-450) th/mm3 [facility] 06/26/18 16:15 Sodium 136 Potassium 4.9 Chloride 102 Carbon Dioxide 25.8 BUN 28 H Creatinine 1.70 H Calcium 8.5 - Imaging Impressions Foot X-Ray 06/26/18 16:07 CONCLUSION: Soft tissue swelling of the left foot. Question hairline fracture proximal phalanx third toe. Caprini VTE Risk Assessment Caprini VTE Risk Assessment: Moderate/High Risk (score >= 2) Caprini Risk Assessment Model: Point Value = 1 Point Value = 2 Point Value = 3 Point Value = 5 Age 41-60 Minor surgery BMI > 25 kg/m2 Swollen legs Varicose veins or History of unexplained or recurrent spontaneous Oral contraceptives or hormone replacement Sepsis (< 1 month) Serious lung disease, including pneumonia (< 1 month) Abnormal pulmonary function Acute myocardial infarction Congestive heart failure (< 1 month) History of inflammatory bowel disease Medical patient at bed rest Age 61-74 Arthroscopic surgery Major open surgery (> 45 min) Laparoscopic surgery (> 45 min) Malignancy Confined to bed (> 72 hours) Immobilizing plaster cast Central venous access Age >= 75 History of VTE Family history of VTE Factor V Leiden Prothrombin [id number] Lupus anticoagulant Anticardiolipin antibodies Elevated serum homocysteine Heparin-induced thrombocytopenia Other congenital or acquired thrombophilia Stroke (< 1 month) Elective arthroplasty Hip, pelvis, or leg fracture Acute spinal cord injury (< 1 month) Prophylaxis Regimen: Total Risk Factor Score Risk Level Prophylaxis Regimen 0-1 Low Early ambulation 2 Moderate Order ONE of the following: *Sequential Compression Device (SCD) *Heparin 5000 units SQ BID 3-4 Higher Order ONE of the following medications: *Heparin 5000 units SQ TID *Enoxaparin/Lovenox 40 mg SQ daily (WT < 150 kg, CrCl > 30 mL/min) *Enoxaparin/Lovenox 30 mg SQ daily (WT < 150 kg, CrCl > 10-29 mL/min) *Enoxaparin/Lovenox 30 mg SQ BID (WT < 150 kg, CrCl > 30 mL/min) AND/OR *Sequential Compression Device (SCD) 5 or more Highest Order ONE of the following medications: *Heparin 5000 units SQ TID (Preferred with Epidurals) *Enoxaparin/Lovenox 40 mg SQ daily (WT < 150 kg, CrCl > 30 mL/min) *Enoxaparin/Lovenox 30 mg SQ daily (WT < 150 kg, CrCl > 10-29 mL/min) *Enoxaparin/Lovenox 30 mg SQ BID (WT < 150 kg, CrCl > 30 mL/min) AND *Sequential Compression Device (SCD) Assessment and Plan - Plan //Acute left foot cellulitis //Failure of outpatient treatment. -Recent left peroneal nerve block on 06/08 to anterior ankle just above foot. - There is a scab over this injection site. -X-ray with no osteomyelitis. -We will start on broad-spectrum antibiotics with vancomycin and Zosyn. -We will consult infectious disease if not improving by morning //Chronic kidney disease stage IV -Creatinine around baseline 1.7. We will continue to monitor. Avoid nephrotoxins if possible. //Diabetes mellitus We will place on long-acting and insulin sliding scale. Diabetic diet and monitor. //Glaucoma. Chronic. Continue home medication. //GERD. Chronic. Continue medication. //History of hypertension. Continue home medication //History of diabetic peripheral neuropathy. Patient is on a little much gabapentin for someone with renal failure. Will decrease dose. Discussed Condition With: Patient, nurse, ED physician. H&P: Quality - VTE Deep Vein Thrombosis/Pulmonary Embolism Present on Admission: No
[2018-06-26] MEDS ORDERED: Famotidine 20 MG Tablet PO SCH (21:00)
[2018-06-26] MEDS ORDERED: Vancomycin Inj 800 MG in Sodium Chlor 0.9% Inj 250 ML IV.SIG SCH (21:00)
[2018-06-26] MEDS: Heparin - SQ 10,000 UNITS/ML Vial SQ SCH (21:08)
[2018-06-26] MEDS: Piperacil/Tazo 4.5 GM Premix 4.5 GM/100 ML BAG IV.SIG SCH (21:08)
[2018-06-26] MEDS: Acetaminophen 500 MG Tablet PO SCH (21:09)
[2018-06-26] MEDS: Carvedilol 12.5 MG Tablet PO SCH (21:09)
[2018-06-26] MEDS: traZODone 50 MG Tablet PO SCH (21:09)
[2018-06-26] MEDS: Gabapentin 300 MG Capsule PO SCH (21:09)
[2018-06-26] MEDS: Latanoprost 0.005% Opth Drops 2.5 ML Bottle EACH EYE SCH ×2 (21:10)
[2018-06-26] MEDS: Insulin NovoLOG Aspart Correctional Sugar Inj SQ SCH (21:50)
[2018-06-26] MEDS: Insulin Detemir Inj 1,000 UNIT/10 ML Vial SQ SCH (21:51)
[2018-06-27] MEDS ORDERED: Gabapentin 300 MG Capsule PO SCH (03:00)
[2018-06-27] MEDS: Piperacil/Tazo 4.5 GM Premix 4.5 GM/100 ML BAG IV.SIG SCH (04:02)
[2018-06-27 07:19] LABS: Baso % (Auto) 0.4 % (0.0-2.0); Eos # (Auto) 0.1 th/mm3 (0.0-0.4); Eos % (Auto) 1.5 % (0.0-4.0); Hematocrit 33.3 % (35.0-46.0); Hemoglobin 10.9 gm/dL (11.6-15.3); Lymph # (Auto) 2.1 th/mm3 (1.0-4.8); Lymph % (Auto) 29.3 % (9.0-44.0); Mean Corpuscular HGB Conc 32.9 % (32.0-36.0); Mean Corpuscular Hemoglobin 30.2 pg (27.0-34.0); Mean Platelet Volume 7.7 fL (7.0-11.0); Mono # (Auto) 0.6 th/mm3 (0.0-0.9); Mono % (Auto) 7.6 % (0.0-8.0); Neut # (Auto) 4.5 th/mm3 (1.8-7.7); Neut % (Auto) 61.2 % (16.0-70.0); Platelet Count 226 th/mm3 (150-450); Red Blood Count 3.62 mil/mm3 (4.00-5.30); Red Cell Distribution Width 12.1 % (11.6-17.2); White Blood Count 7.3 th/mm3 (4.0-11.0)
[2018-06-27 07:28] LABS: Chloride 102 meq/L (98-107); Potassium 4.5 meq/L (3.5-5.1); Sodium 139 meq/L (136-145)
[2018-06-27 07:32] LABS: Calcium 8.1 mg/dL (8.5-10.1)
[2018-06-27 07:33] LABS: Albumin 2.5 g/dL (3.4-5.0); Anion Gap 6 meq/L (5-15); Blood Urea Nitrogen 27 mg/dL (7-18); Carbon Dioxide 30.6 meq/L (21.0-32.0); Glucose,Random 155 mg/dL (74-106)
[2018-06-27 07:36] LABS: Alanine Aminotransferase 18 U/L (10-53); Aspartate Aminotransferase 20 U/L (15-37); Glomerular Filtration Rate 31 mL/min (>89)
[2018-06-27 07:37] LABS: Total Protein 5.5 g/dL (6.4-8.2)
[2018-06-27 07:39] LABS: Alkaline Phosphatase 44 U/L (45-117)
[2018-06-27] MEDS: Aspirin 325 MG Tablet PO SCH (08:41)
[2018-06-27] MEDS: predniSONE 10 MG Tablet PO SCH (08:41)
[2018-06-27] MEDS: Docusate Sodium 100 MG Capsule PO SCH (08:41)
[2018-06-27] MEDS: Heparin - SQ 10,000 UNITS/ML Vial SQ SCH ×2 (08:42→20:55)
[2018-06-27] MEDS: Lisinopril 5 MG Tablet PO SCH (08:42)
[2018-06-27] MEDS: Gabapentin 300 MG Capsule PO SCH ×2 (08:42→20:58)
[2018-06-27] MEDS: Calcium/Vitamin D 250/125 MG Tablet PO SCH (08:42)
[2018-06-27] MEDS: Carvedilol 12.5 MG Tablet PO SCH ×2 (08:43→22:41)
[2018-06-27] MEDS: Insulin NovoLOG Aspart Correctional Sugar Inj SQ SCH ×4 (08:43→21:05)
[2018-06-27] MEDS: Insulin Detemir Inj 1,000 UNIT/10 ML Vial SQ SCH ×2 (08:43→21:05)
[2018-06-27] MEDS: Famotidine 20 MG Tablet PO SCH ×2 (08:44→20:56)
[2018-06-27] MEDS: Levothyroxine 112 MCG Tablet PO SCH (08:44)
[2018-06-27] MEDS ORDERED: INSULIN DEGLUDEC 24 UNIT SQ SCH (09:00)
[2018-06-27] MEDS: Piperacil/Tazo 3.375 GM Premix 3.375 GM/50 ML PIGGYBACK IV.SIG SCH ×3 (10:56→22:42)
[2018-06-27] MEDS: oxyCODONE 10 MG Controlled Release Tablet PO SCH ×2 (11:41→20:57)
--- NOTE | 2018-06-27 13:49 | P.PNIM ---
Subjective Interval history: Patient says he is feeling right. Denies any chest pain or shortness of breath. No change in the left foot pain, has no pain at rest to begin with. Physical Exam Vital signs: Vital Signs 06/26/18 15:31 06/26/18 18:38 06/26/18 20:00 Temperature 98.0 F 96.5 F L 98.7 F Pulse Rate 79 77 80 Respiratory Rate 18 20 20 Blood Pressure 121/64 147/65 H 115/56 L Pulse Oximetry 96 96 94 L 06/27/18 00:00 06/27/18 04:00 06/27/18 08:00 Temperature 98.7 F 96.9 F L Pulse Rate 77 75 Respiratory Rate 20 20 Blood Pressure 96/52 L 119/57 L 121/56 L Pulse Oximetry 94 L 97 06/27/18 12:00 06/27/18 12:06 06/27/18 12:46 Temperature 97.2 F L Pulse Rate 71 Respiratory Rate 20 18 17 Blood Pressure 126/59 L Pulse Oximetry 96 Intake & Output 06/26/18 06/27/18 06/27/18 18:59 06:59 18:59 Intake Total 250 / 250 200 / 200 270 / 270 Balance 250 / 250 200 / 200 270 / 270 Weight 78.925 kg 78.8 kg Intake: IV 250 / 250 200 / 200 50 / 50 Zosyn 3.375 GM Premix 3.375 gm 50 / 50 In 50 ml @ 100 mls/hr IV.SIG Q6H [facility] Rx#:[id number] Zosyn 4.5 GM Premix 4.5 gm In 200 / 200 100 ml @ 200 mls/hr IV.SIG Q6H [facility] Rx#:[id number] Vancomycin Inj 1,000 MG In NS 250 / 250 Inj 250 ML @ 250 mls/hr IV.SIG ONCE ONE Rx#:[id number] Oral 220 / 220 Other: Weight On Admission 78.925 kg Narrative: GENERAL: Patient lying in bed. Appears comfortable. SKIN: Warm and dry. HEAD: Normocephalic. EYES: No scleral icterus. No injection or drainage. NECK: Supple, trachea midline. No JVD.. CARDIOVASCULAR: Regular rate and rhythm without murmurs, gallops, or rubs. RESPIRATORY: Breath sounds equal bilaterally. No accessory muscle use. GASTROINTESTINAL: Abdomen soft, non-tender, nondistended. MUSCULOSKELETAL: No cyanosis. +1 edema left foot pain erythema improved from yesterday, however still present. Still with scab anterior ankle. BACK: Nontender without obvious deformity. No CVA tenderness. Results - Labs CBC & Chem 7: 06/27/18 06:46 06/27/18 06:46 Laboratory Results - last 24 hr 06/26/18 06/26/18 06/26/18 16:15 16:15 21:21 CBC w Diff Auto diff final WBC 10.4 RBC 4.13 Hgb 12.6 Hct 37.7 MCV 91.2 MCH 30.5 MCHC 33.4 RDW 12.1 Plt Count 263 MPV 7.7 Neut % (Auto) 92.4 H Lymph % (Auto) 6.2 L [place] % (Auto) 0.9 Eos % (Auto) 0.2 Baso % (Auto) 0.3 Neut # (Auto) 9.7 H Lymph # (Auto) 0.6 L [place] # (Auto) 0.1 Eos # (Auto) 0.0 Baso # (Auto) 0.0 WBC Differential . Differential Comment . Sodium 136 Potassium 4.9 Chloride 102 Carbon Dioxide 25.8 Anion Gap 8 BUN 28 H Creatinine 1.70 H Estimated GFR 29 L POC Glucose 300 H Random Glucose 210 H Calcium 8.5 Total Bilirubin AST ALT Alkaline Phosphatase Total Protein Albumin 06/27/18 06/27/18 06/27/18 06:46 06:46 07:23 CBC w Diff Auto diff final WBC 7.3 RBC 3.62 L Hgb 10.9 L Hct 33.3 L MCV 92.0 MCH 30.2 MCHC 32.9 RDW 12.1 Plt Count 226 MPV 7.7 Neut % (Auto) 61.2 Lymph % (Auto) 29.3 [place] % (Auto) 7.6 Eos % (Auto) 1.5 Baso % (Auto) 0.4 Neut # (Auto) 4.5 Lymph # (Auto) 2.1 [place] # (Auto) 0.6 Eos # (Auto) 0.1 Baso # (Auto) 0.0 WBC Differential . Differential Comment . Sodium 139 Potassium 4.5 Chloride 102 Carbon Dioxide 30.6 Anion Gap 6 BUN 27 H Creatinine 1.60 H Estimated GFR 31 L POC Glucose 162 H Random Glucose 155 H Calcium 8.1 L Total Bilirubin 0.3 AST 20 ALT 18 Alkaline Phosphatase 44 L Total Protein 5.5 L D Albumin 2.5 L 06/27/18 11:23 CBC w Diff WBC RBC Hgb Hct MCV MCH MCHC RDW Plt Count MPV Neut % (Auto) Lymph % (Auto) [place] % (Auto) Eos % (Auto) Baso % (Auto) Neut # (Auto) Lymph # (Auto) [place] # (Auto) Eos # (Auto) Baso # (Auto) WBC Differential Differential Comment Sodium Potassium Chloride Carbon Dioxide Anion Gap BUN Creatinine Estimated GFR POC Glucose 183 H Random Glucose Calcium Total Bilirubin AST ALT Alkaline Phosphatase Total Protein Albumin Microbiology 06/26/18 16:20 Blood - Peripheral Aerobic Blood Culture - Preliminary No growth in 1 day 06/26/18 16:20 Blood - Peripheral Anaerobic Blood Culture - Preliminary No growth in 1 day 06/26/18 16:15 Blood - Peripheral Aerobic Blood Culture - Preliminary No growth in 1 day 06/26/18 16:15 Blood - Peripheral Anaerobic Blood Culture - Preliminary No growth in 1 day - Imaging Impressions Foot X-Ray 06/26/18 16:07 CONCLUSION: Soft tissue swelling of the left foot. Question hairline fracture proximal phalanx third toe. Assessment and Plan - Plan //Acute left foot cellulitis //Failure of outpatient treatment. -Recent left peroneal nerve block on 06/08 to anterior ankle just above foot. - There is a scab over this injection site. -X-ray with no osteomyelitis. -We will start on broad-spectrum antibiotics with vancomycin and Zosyn. = 06/27. Erythema improving, however still significant. Appreciate pharmacy assistance for vancomycin dosing. Continue broad-spectrum IV antibiotics and monitor. //Chronic kidney disease stage IV -Creatinine around baseline 1.7. We will continue to monitor. Avoid nephrotoxins if possible. = Creatinine stable at 1.7. //Diabetes mellitus We will place on long-acting and insulin sliding scale. Diabetic diet and monitor. -Glucose acceptable. Continue to monitor. //Glaucoma. Chronic. Continue home medication. //GERD. Chronic. Continue medication. //History of hypertension. Continue home medication //History of diabetic peripheral neuropathy. Patient is on a little much gabapentin for someone with renal failure. Continue on slightly decreased dose. Discussed Condition With: Patient, nurse Discharge Planning: Hopefully discharge on by mouth antibiotics in the next 1-2 days foot continues improving.
[2018-06-27] MEDS: Latanoprost 0.005% Opth Drops 2.5 ML Bottle EACH EYE SCH ×2 (17:37→22:41)
[2018-06-27] MEDS: Vancomycin Inj 800 MG in Sodium Chlor 0.9% Inj 250 ML IV.SIG SCH (20:54)
[2018-06-27] MEDS: Acetaminophen 500 MG Tablet PO SCH (22:41)
[2018-06-27] MEDS: traZODone 50 MG Tablet PO SCH (22:41)
[2018-06-28] MEDS: Piperacil/Tazo 3.375 GM Premix 3.375 GM/50 ML PIGGYBACK IV.SIG SCH ×4 (05:17→22:34)
[2018-06-28 06:57] LABS: Baso % (Auto) 0.5 % (0.0-2.0); Eos # (Auto) 0.1 th/mm3 (0.0-0.4); Eos % (Auto) 1.4 % (0.0-4.0); Hematocrit 33.5 % (35.0-46.0); Lymph # (Auto) 1.6 th/mm3 (1.0-4.8); Lymph % (Auto) 23.6 % (9.0-44.0); Mean Corpuscular HGB Conc 32.9 % (32.0-36.0); Mean Corpuscular Hemoglobin 30.9 pg (27.0-34.0); Mean Corpuscular Volume 93.7 fL (80.0-100.0); Mean Platelet Volume 8.4 fL (7.0-11.0); Mono # (Auto) 0.6 th/mm3 (0.0-0.9); Mono % (Auto) 8.8 % (0.0-8.0); Neut # (Auto) 4.3 th/mm3 (1.8-7.7); Neut % (Auto) 65.7 % (16.0-70.0); Platelet Count 226 th/mm3 (150-450); Red Blood Count 3.58 mil/mm3 (4.00-5.30); Red Cell Distribution Width 12.5 % (11.6-17.2); White Blood Count 6.6 th/mm3 (4.0-11.0)
[2018-06-28 07:12] LABS: Potassium 4.2 meq/L (3.5-5.1)
[2018-06-28 07:19] LABS: Albumin 2.4 g/dL (3.4-5.0); Carbon Dioxide 29.3 meq/L (21.0-32.0)
[2018-06-28 07:22] LABS: Phosphorus 3.2 mg/dL (2.5-4.9)
[2018-06-28 07:23] LABS: Total Protein 5.6 g/dL (6.4-8.2)
[2018-06-28] MEDS: Insulin Detemir Inj 1,000 UNIT/10 ML Vial SQ SCH ×2 (09:21→21:19)
[2018-06-28] MEDS: Heparin - SQ 10,000 UNITS/ML Vial SQ SCH ×2 (09:21→21:10)
[2018-06-28] MEDS: Famotidine 20 MG Tablet PO SCH ×2 (09:22→21:14)
[2018-06-28] MEDS: Aspirin 325 MG Tablet PO SCH (09:22)
[2018-06-28] MEDS: Levothyroxine 112 MCG Tablet PO SCH (09:22)
[2018-06-28] MEDS: Lisinopril 5 MG Tablet PO SCH (09:23)
[2018-06-28] MEDS: Calcium/Vitamin D 250/125 MG Tablet PO SCH (09:24)
[2018-06-28] MEDS: Carvedilol 12.5 MG Tablet PO SCH ×2 (09:24→21:13)
[2018-06-28] MEDS: Gabapentin 300 MG Capsule PO SCH ×2 (09:25→21:14)
[2018-06-28] MEDS: predniSONE 10 MG Tablet PO SCH (09:25)
[2018-06-28] MEDS: oxyCODONE 10 MG Controlled Release Tablet PO SCH ×2 (09:25→21:14)
[2018-06-28] MEDS: Insulin NovoLOG Aspart Correctional Sugar Inj SQ SCH ×4 (09:26→21:24)
[2018-06-28] MEDS: Docusate Sodium 100 MG Capsule PO SCH (09:26)
--- NOTE | 2018-06-28 12:21 | P.PNIM ---
Subjective Interval history: Again with slight improvement today in the left lower extremity erythema. Patient says that tenderness to palpation appears to have improved today Physical Exam Vital signs: Vital Signs 06/27/18 12:46 06/27/18 15:43 06/27/18 17:43 Temperature 97.7 F Pulse Rate 78 Respiratory Rate 17 20 18 Blood Pressure 140/66 Pulse Oximetry 96 06/27/18 20:00 06/27/18 22:41 06/28/18 00:00 Temperature 98.3 F 98.6 F Pulse Rate 86 80 Respiratory Rate 18 16 Blood Pressure 97/62 L 95/53 L Pulse Oximetry 96 95 06/28/18 07:58 06/28/18 08:00 06/28/18 08:28 Temperature 98.5 F Pulse Rate 77 Respiratory Rate 18 18 18 Blood Pressure 111/59 L Pulse Oximetry 96 06/28/18 09:52 06/28/18 09:55 06/28/18 12:00 Temperature 98.6 F Pulse Rate 70 Respiratory Rate 18 18 18 Blood Pressure 131/58 L Pulse Oximetry 97 Intake & Output 06/27/18 06/28/18 06/28/18 18:59 06:59 18:59 Intake Total 440 / 440 838 / 838 50 / 50 Balance 440 / 440 838 / 838 50 / 50 Weight 80.3 kg Intake: IV 100 / 100 358 / 358 50 / 50 Zosyn 3.375 GM Premix 3.375 gm 100 / 100 100 / 100 50 / 50 In 50 ml @ 100 mls/hr IV.SIG Q6H [facility] Rx#:[id number] Vancomycin Inj 800 MG In NS Inj 258 / 258 250 ML @ 258 mls/hr IV.SIG Q24H ANGELIA Rx#:[id number] Oral 340 / 340 Oral Supplement 480 / 480 Other: # Voids 7 2 Narrative: GENERAL: Patient lying in bed. Appears comfortable. SKIN: Warm and dry. HEAD: Normocephalic. EYES: No scleral icterus. No injection or drainage. NECK: Supple, trachea midline. No JVD.. CARDIOVASCULAR: Regular rate and rhythm without murmurs, gallops, or rubs. RESPIRATORY: Breath sounds equal bilaterally. No accessory muscle use. GASTROINTESTINAL: Abdomen soft, non-tender, nondistended. MUSCULOSKELETAL: No cyanosis. +1 edema left foot pain erythema improved slightly from yesterday, however still present. Still with scab anterior ankle. BACK: Nontender without obvious deformity. No CVA tenderness. Results - Labs CBC & Chem 7: 06/28/18 05:37 06/28/18 05:37 Laboratory Results - last 24 hr 06/27/18 06/27/18 06/28/18 16:47 20:53 05:11 CBC w Diff WBC RBC Hgb Hct MCV MCH MCHC RDW Plt Count MPV Neut % (Auto) Lymph % (Auto) [place] % (Auto) Eos % (Auto) Baso % (Auto) Neut # (Auto) Lymph # (Auto) [place] # (Auto) Eos # (Auto) Baso # (Auto) WBC Differential Differential Comment Sodium Potassium Chloride Carbon Dioxide Anion Gap BUN Creatinine Estimated GFR POC Glucose 316 H 191 H 235 H Random Glucose Calcium Phosphorus Magnesium Total Bilirubin Direct Bilirubin Indirect Bilirubin AST ALT Alkaline Phosphatase Total Protein Albumin 06/28/18 06/28/18 06/28/18 05:37 05:37 08:03 CBC w Diff Auto diff final WBC 6.6 RBC 3.58 L Hgb 11.0 L Hct 33.5 L MCV 93.7 MCH 30.9 MCHC 32.9 RDW 12.5 Plt Count 226 MPV 8.4 Neut % (Auto) 65.7 Lymph % (Auto) 23.6 [place] % (Auto) 8.8 H Eos % (Auto) 1.4 Baso % (Auto) 0.5 Neut # (Auto) 4.3 Lymph # (Auto) 1.6 [place] # (Auto) 0.6 Eos # (Auto) 0.1 Baso # (Auto) 0.0 WBC Differential . Differential Comment . Sodium 139 Potassium 4.2 Chloride 104 Carbon Dioxide 29.3 Anion Gap 6 BUN 21 H Creatinine 1.60 H Estimated GFR 31 L POC Glucose 255 H Random Glucose 203 H Calcium 8.0 L Phosphorus 3.2 Magnesium 2.0 Total Bilirubin 0.3 Direct Bilirubin 0.2 Indirect Bilirubin 0.1 AST 35 ALT 30 Alkaline Phosphatase 50 Total Protein 5.6 L Albumin 2.4 L 06/28/18 11:33 CBC w Diff WBC RBC Hgb Hct MCV MCH MCHC RDW Plt Count MPV Neut % (Auto) Lymph % (Auto) [place] % (Auto) Eos % (Auto) Baso % (Auto) Neut # (Auto) Lymph # (Auto) [place] # (Auto) Eos # (Auto) Baso # (Auto) WBC Differential Differential Comment Sodium Potassium Chloride Carbon Dioxide Anion Gap BUN Creatinine Estimated GFR POC Glucose 118 H Random Glucose Calcium Phosphorus Magnesium Total Bilirubin Direct Bilirubin Indirect Bilirubin AST ALT Alkaline Phosphatase Total Protein Albumin Microbiology 06/26/18 16:20 Blood - Peripheral Aerobic Blood Culture - Preliminary No growth in 2 days 06/26/18 16:20 Blood - Peripheral Anaerobic Blood Culture - Preliminary No growth in 2 days 06/26/18 16:15 Blood - Peripheral Aerobic Blood Culture - Preliminary No growth in 2 days 06/26/18 16:15 Blood - Peripheral Anaerobic Blood Culture - Preliminary No growth in 2 days Assessment and Plan - Plan //Acute left foot cellulitis //Failure of outpatient treatment. -Recent left peroneal nerve block on 06/08 to anterior ankle just above foot. - There is a scab over this injection site. -X-ray with no osteomyelitis. -We will start on broad-spectrum antibiotics with vancomycin and Zosyn. = 06/27. Erythema improving, however still significant. Appreciate pharmacy assistance for vancomycin dosing. Continue broad-spectrum IV antibiotics and monitor. -06/28. Continues improving. Continue current antibiotics. Will keep left foot elevated to help with edema. //Chronic kidney disease stage IV -Creatinine around baseline 1.7. We will continue to monitor. Avoid nephrotoxins if possible. = Creatinine stable at 1.6. //Diabetes mellitus We will place on long-acting and insulin sliding scale. Diabetic diet and monitor. -Glucose acceptable. Continue to monitor. //Glaucoma. Chronic. Continue home medication. //GERD. Chronic. Continue medication. //History of hypertension. Continue home medication //History of diabetic peripheral neuropathy. Patient is on a little much gabapentin for someone with renal failure. Continue on slightly decreased dose. Discharge Planning: Hopefully discharge tomorrow if foot continues improving.
[2018-06-28] MEDS: Latanoprost 0.005% Opth Drops 2.5 ML Bottle EACH EYE SCH ×2 (17:13→21:26)
[2018-06-28] MEDS: Vancomycin Inj 800 MG in Sodium Chlor 0.9% Inj 250 ML IV.SIG SCH (21:06)
[2018-06-28] MEDS: Acetaminophen 500 MG Tablet PO SCH (21:10)
[2018-06-28] MEDS: traZODone 50 MG Tablet PO SCH (21:10)
[2018-06-29] MEDS: Piperacil/Tazo 3.375 GM Premix 3.375 GM/50 ML PIGGYBACK IV.SIG SCH (05:15)
[2018-06-29] MEDS: Insulin NovoLOG Aspart Correctional Sugar Inj SQ SCH (07:48)
[2018-06-29] MEDS: oxyCODONE 10 MG Controlled Release Tablet PO SCH (08:08)
[2018-06-29] MEDS: Gabapentin 300 MG Capsule PO SCH (08:08)
[2018-06-29] MEDS: Lisinopril 5 MG Tablet PO SCH (08:09)
[2018-06-29] MEDS: Calcium/Vitamin D 250/125 MG Tablet PO SCH (08:09)
[2018-06-29] MEDS: Heparin - SQ 10,000 UNITS/ML Vial SQ SCH (08:10)
[2018-06-29] MEDS: Levothyroxine 112 MCG Tablet PO SCH (08:10)
[2018-06-29] MEDS: Aspirin 325 MG Tablet PO SCH (08:10)
[2018-06-29] MEDS: Famotidine 20 MG Tablet PO SCH (08:11)
[2018-06-29] MEDS: Carvedilol 12.5 MG Tablet PO SCH (08:11)
[2018-06-29] MEDS: Docusate Sodium 100 MG Capsule PO SCH (08:12)
[2018-06-29] MEDS: Insulin Detemir Inj 1,000 UNIT/10 ML Vial SQ SCH (08:12)
[2018-06-29] MEDS: predniSONE 10 MG Tablet PO SCH (08:12)
[2018-06-29] MEDS ORDERED: Insulin Detemir Inj 1,000 UNIT/10 ML Vial SQ SCH (09:00)
--- NOTE | 2018-06-29 09:38 | P.DCO ---
- Diagnosis (1) Cellulitis of left lower leg Status: Acute - Physical Therapy Order: Evaluate and treat - Home Health Nursing Order: Wound care and dressing changes, Nursing assessment with vital signs Instructions: Resumption of home health. - Case Management Consult Case Management Consult-Home Health: Yes - Certification I have seen patient [facility] on 06/29/18. My clinical findings support the need for the requested home health care services because: Limited ability to care for self I certify that my clinical findings support that this patient is homebound because: Unsafe to leave home unassisted
--- NOTE | 2018-06-29 09:40 | P.PNIM ---
Subjective Interval history: Patient says she is feeling well. Denies any pain. Feels like going home. Physical Exam Vital signs: Vital Signs 06/28/18 09:52 06/28/18 09:55 06/28/18 12:00 Temperature 98.6 F Pulse Rate 70 Respiratory Rate 18 18 18 Blood Pressure 131/58 L Pulse Oximetry 97 06/28/18 16:00 06/28/18 17:27 06/28/18 17:57 Temperature 98.2 F Pulse Rate 85 Respiratory Rate 18 18 18 Blood Pressure 151/67 H Pulse Oximetry 96 06/28/18 20:00 06/29/18 00:00 Temperature 97.1 F L 97.9 F Pulse Rate 83 83 Respiratory Rate 16 16 Blood Pressure 102/59 L 112/60 Pulse Oximetry 97 95 Intake & Output 06/28/18 06/29/18 06/29/18 18:59 06:59 18:59 Intake Total 400 / 400 558 / 558 Balance 400 / 400 558 / 558 Weight 80.2 kg Intake: IV 100 / 100 358 / 358 Zosyn 3.375 GM Premix 3.375 gm 100 / 100 100 / 100 In 50 ml @ 100 mls/hr IV.SIG Q6H ANGELIA Rx#:[id number] Vancomycin Inj 800 MG In NS Inj 258 / 258 250 ML @ 258 mls/hr IV.SIG Q24H ANGELIA Rx#:[id number] Oral 300 / 300 Oral Supplement 200 / 200 Other: # Voids 1 2 Date of Last Bowel Movement 06/28/18 Narrative: GENERAL: Patient lying in bed. Appears comfortable. SKIN: Warm and dry. HEAD: Normocephalic. EYES: No scleral icterus. No injection or drainage. NECK: Supple, trachea midline. No JVD.. CARDIOVASCULAR: Regular rate and rhythm without murmurs, gallops, or rubs. RESPIRATORY: Breath sounds equal bilaterally. No accessory muscle use. GASTROINTESTINAL: Abdomen soft, non-tender, nondistended. MUSCULOSKELETAL: No cyanosis. +1 edema left foot. Minimal erythema. No warmth. scab as before. No fluctuance BACK: Nontender without obvious deformity. No CVA tenderness. Results - Labs CBC & Chem 7: 06/28/18 05:37 06/28/18 05:37 Laboratory Results - last 24 hr 06/28/18 06/28/1806/28/18 11:33 16:27 21:22 POC Glucose 118 H 367 H 359 H 06/29/18 07:15 POC Glucose 191 H Microbiology 06/26/18 16:20 Blood - Peripheral Aerobic Blood Culture - Preliminary No growth in 2 days 06/26/18 16:20 Blood - Peripheral Anaerobic Blood Culture - Preliminary No growth in 2 days 06/26/18 16:15 Blood - Peripheral Aerobic Blood Culture - Preliminary No growth in 2 days 06/26/18 16:15 Blood - Peripheral Anaerobic Blood Culture - Preliminary No growth in 2 days Assessment and Plan - Assessment (1) Cellulitis of left lower leg Code(s): L03.116 - Cellulitis of left lower limb Status: Acute - Plan //Acute left foot cellulitis //Failure of outpatient treatment. -Recent left peroneal nerve block on 06/08 to anterior ankle just above foot. - There is a scab over this injection site. -X-ray with no osteomyelitis. -We will start on broad-spectrum antibiotics with vancomycin and Zosyn. = 06/27. Erythema improving, however still significant. Appreciate pharmacy assistance for vancomycin dosing. Continue broad-spectrum IV antibiotics and monitor. -06/28. Continues improving. Continue current antibiotics. Will keep left foot elevated to help with edema. = 06/29. Discharge home on broad-spectrum antibiotics. Follow-up with primary care as outpatient. //Chronic kidney disease stage IV -Creatinine around baseline 1.7. We will continue to monitor. Avoid nephrotoxins if possible. = Creatinine stable at 1.6. //Diabetes mellitus We will place on long-acting and insulin sliding scale. Diabetic diet and monitor. -Glucose acceptable. Continue to monitor. //Glaucoma. Chronic. Continue home medication. //GERD. Chronic. Continue medication. //History of hypertension. Continue home medication //History of diabetic peripheral neuropathy. Patient is on a little much gabapentin for someone with renal failure. Continue on slightly decreased dose. Discharge Planning: Discharge home with home health on broad-spectrum antibiotics.
--- NOTE | 2018-06-29 09:43 | P.DS ---
Date of admission: 06/26/18 17:22 Primary care physician: Padmini Kam MD Brief History from admission: 78-year-old female with a history of diabetes mellitus, diabetic peripheral neuropathy, recent left peroneal nerve block just above the left anterior ankle on 06/08 who presents with a one-week history of progressively worsening left foot tenderness, redness, swelling. She visited the ER on 06/24, had a Doppler done which was negative for DVT, and was discharged on Bactrim, ciprofloxacin which she has been taking. Redness has continued to worsen since this time. Patient otherwise says she feels all right. Denies any chest pain, shortness of breath, nausea, vomiting, fevers, chills, headedness, dizziness. DS: Diagnosis - Discharge Diagnosis (1) Cellulitis of left lower leg Status: Acute DS: Summary Hospital Course: //Acute left foot cellulitis //Failure of outpatient treatment. -Recent left peroneal nerve block on 06/08 to anterior ankle just above foot. - There is a scab over this injection site. -X-ray with no osteomyelitis. -We will start on broad-spectrum antibiotics with vancomycin and Zosyn. = 06/27. Erythema improving, however still significant. Appreciate pharmacy assistance for vancomycin dosing. Continue broad-spectrum IV antibiotics and monitor. -06/28. Continues improving. Continue current antibiotics. Will keep left foot elevated to help with edema. = 06/29. Discharge home on broad-spectrum antibiotics. Follow-up with primary care as outpatient. //Chronic kidney disease stage IV -Creatinine around baseline 1.7. We will continue to monitor. Avoid nephrotoxins if possible. = Creatinine stable at 1.6. //Diabetes mellitus We will place on long-acting and insulin sliding scale. Diabetic diet and monitor. -Glucose acceptable. Continue to monitor. //Glaucoma. Chronic. Continue home medication. //GERD. Chronic. Continue medication. //History of hypertension. Continue home medication //History of diabetic peripheral neuropathy. Patient is on a little much gabapentin for someone with renal failure. Continue on slightly decreased dose. Discharge Planning: Discharge home with home health on broad-spectrum antibiotics. - Time Spent with Patient Total time spent providing and/or coordinating discharge services: - Quality: VTE Deep Vein Thrombosis/Pulmonary Embolism Present on Admission: No Exam Vital signs: Vital Signs 06/28/18 09:52 06/28/18 09:55 06/28/18 12:00 Temperature 98.6 F Pulse Rate 70 Respiratory Rate 18 18 18 Blood Pressure 131/58 L Pulse Oximetry 97 06/28/18 16:00 06/28/18 17:27 06/28/18 17:57 Temperature 98.2 F Pulse Rate 85 Respiratory Rate 18 18 18 Blood Pressure 151/67 H Pulse Oximetry 96 06/28/18 20:00 06/29/18 00:00 Temperature 97.1 F L 97.9 F Pulse Rate 83 83 Respiratory Rate 16 16 Blood Pressure 102/59 L 112/60 Pulse Oximetry 97 95 Intake & Output 06/28/18 06/29/18 06/29/18 18:59 06:59 18:59 Intake Total 400 / 400 558 / 558 Balance 400 / 400 558 / 558 Weight 80.2 kg Intake: IV 100 / 100 358 / 358 Zosyn 3.375 GM Premix 3.375 gm 100 / 100 100 / 100 In 50 ml @ 100 mls/hr IV.SIG Q6H ANGELIA Rx#:[id number] Vancomycin Inj 800 MG In NS Inj 258 / 258 250 ML @ 258 mls/hr IV.SIG Q24H ANGELIA Rx#:[id number] Oral 300 / 300 Oral Supplement 200 / 200 Other: # Voids 1 2 Date of Last Bowel Movement 06/28/18 Results Procedures completed during hospitalization: No invasive procedures. Labs on day of discharge: Labs from last 24 hours 06/29/18 06/28/18 06/28/18 07:15 21:22 16:27 POC Glucose 191 H 359 H 367 H 06/28/18 11:33 POC Glucose 118 H Preliminary micro results at discharge 06/26/18 16:20 Aerobic Blood Culture - Preliminary Blood - Peripheral No growth in 2 days Anaerobic Blood Culture - Preliminary No growth in 2 days 06/26/18 16:15 Aerobic Blood Culture - Preliminary Blood - Peripheral No growth in 2 days Anaerobic Blood Culture - Preliminary No growth in 2 days - Impressions ITS Impressions Foot X-Ray 06/26/18 16:07 CONCLUSION: Soft tissue swelling of the left foot. Question hairline fracture proximal phalanx third toe. Discharge Plan - Discharge Condition Condition: Stable - Discharge Details Anticipated Discharge Date: 06/29/18 - Physicians Team Primary Care Provider: Padmini Kam Attending Provider: Oneal Marrufo Other Providers: [facility]
[2018-06-29] MEDS ORDERED: Pharmacy Ordered Lab Info OTHER ONE (19:45)
== END 2018-06-29 11:19 | disposition home health service (06) | DRG 603 ==
LOC: PHED 15:28 → PHEDA 17:22 → PH3 18:06
PROVIDERS: ADMIT Internal Medicine; ATTEND Internal Medicine
CPT/HCPCS: 73630; 80048; 80053; 80069; 80076; 82948; 82962; 83605; 83735; 85025; 87040; 90765; 90774; 93971; 96365; 96374; 97162; 99284; 99285; C8952; J1644; J1815; J2543; J3370; J7050; J7506; J7512